=== PATIENT | female | born 1965 | race Caucasian/White ===

== ENCOUNTER 2018-04-03 14:41 | Observation (INO) ==
[2018-04-03] MEDS ORDERED: diphenhydrAMINE HCL 50 MG/ML VIAL IV ONE (14:50)
[2018-04-03] MEDS ORDERED: KETOROLAC TROMETHAMINE 30 MG/ML VIAL IV ONE (14:50)
[2018-04-03] MEDS ORDERED: METOCLOPRAMIDE HCL 5 MG/ML VIAL IV ONE (14:50)
[2018-04-03] MEDS ORDERED: NORMAL SALINE 1,000 ML IV ONE ×3 (14:50→22:19)
[2018-04-03] MEDS ORDERED: MORPHINE SULFATE 4 MG/ML SYRG IV ONE ×2 (14:51→18:37)
[2018-04-03 15:10] LABS: Hematocrit 37.7 % (37.0-47.0); Hemoglobin 13.5 gm/dL (12.5-16.0); Mean Cell Volume 93.5 fl (78-100); Mean Corpuscular Hemoglobin 33.5 pg (27-31); Mean Corpuscular Hgb Conc 35.8 g/dl (32-36); Mean Platelet Volume 9.1 fl (8-12.5); Platelet Count 169 K/mm3 (150-450); Red Blood Count 4.03 M/mm3 (4.2-5.4); White Blood Count 6.5 K/mm3 (4.0-10.5)
[2018-04-03 15:16] LABS: Total Cells Counted 100
[2018-04-03 15:22] LABS: Albumin * 2.9 gm/dl (3.4-5.0); Anion Gap 15.9 mmol/L (6.8-13.8); BUN/Creatinine Ratio 12.9 (9.0-21.6); Bilirubin, Total 0.3 mg/dL (0.0-1.1); Calcium * 8.4 mg/dL (7.9-10.9); Carbon Dioxide 23.7 mmol/L (24-32.6); Potassium 3.6 mmol/L (3.4-4.6); Total Protein 5.7 gm/dL (6.2-8.2)
[2018-04-03 15:33] LABS: Band 10 % (0-2.0); Lymphocyte 12 % (20-51); Monocyte 4 % (0-9); Neutrophil 74 % (42-75); Neutrophil # 4.8 K/mm3 (1.3-6.0); Platelet Estimate Normal (NORMAL)
[2018-04-03 15:34] LABS: RBC Morphology Normal (NORMAL)
[2018-04-03 15:43] LABS: Urine Bilirubin Negative (NEGATIVE); Urine Blood Negative /ul (NEGATIVE); Urine Ketone 5 mg/dL (NEGATIVE); Urine Nitrite Negative (NEGATIVE); Urine Protein 15 mg/dL (NEGATIVE); Urine Specific Gravity 1.025 SP.GR. (1.005-1.010); Urine Urobilinogen Normal (NORMAL); Urine pH 5.5 pH (5.0-7.0)
[2018-04-03 15:54] LABS: Urine Appearance Clear (CLEAR); Urine Bacteria TRACE; Urine Color Yellow; Urine Hyaline Cast TRACE /LPF; Urine RBC None Seen /hpf (0-5); Urine WBC 0-5 /hpf (0-5)
[2018-04-03] MEDS ORDERED: DIATRIZOATE MEGLUMINE, SODIUM 30 ML BTL PO ONE (15:58)
[2018-04-03 16:05] LABS: Cocaine Ur Negative (NEGATIVE); Urine Barbiturate Negative (NEGATIVE); Urine Benzodiazepines Negative (NEGATIVE); Urine Opiates Negative (NEGATIVE); Urine PCP Negative (NEGATIVE)
[2018-04-03 16:06] LABS: Urine THC Positive (NEGATIVE)
[2018-04-03] MEDS ORDERED: cefTRIAXone SODIUM 1,000 MG/100 ML BAG IV ONE (18:37)
--- NOTE | 2018-04-03 19:14 | ERNOTE ---
ER Female HPI Date of Service: 04/03/18 Stated Complaint: stomach pain Time Seen by Provider: 04/03/18 14:48 Source: patient Exam Limitations: no limitations Immunizations: IMMUNIZATION HX Immunizations Up to Date Yes Allergies/Adverse Reactions: Allergies nickel Allergy (Verified 04/03/18 14:46) Home Medications: HOME MEDICATIONS NK 04/03/18 [Last Taken Unknown] - History of Present Illness Narrative: Patient presents via EMS for severe right side abdominal pain into her back since last night. The pain is severe. She has never had it before. nothing makes it better or worse. Severe. Nausea with it. Pain right low and mid abdomen into back. No CP or SOB. Has not seen anyone for it. it waxes and wanes but is mostly severe. She is yelling and thrashing around initially which compromises history. No dysuria. No clear fever but some sweats. Timing: Present: constant Quality: Present: stabbing Onset Location: Present: RLQ Radiation: Present: back Activities at Onset: Present: none Prior Abdominal Problems: Present: none Modifying Factors - (Improves): Present: other - nothign Modifying Factors - (Worsens): Present: other - nothign Associated Symptoms: Present: nausea, abdominal pain. Absent: dysuria Prior Treatment: Absent: recently seen Review of Systems - Review of Systems Constitutional: Present: chills ENT: Present: no symptoms reported Respiratory: Absent: shortness of breath Cardiology: Absent: chest pain Gastrointestinal/Abdominal: Present: See HPI Genitourinary: Present: See HPI Skin: Absent: rash Neurological: Absent: weakness All Other Systems: All systems neg except as marked Medical History (Last Reviewed 04/03/18 @ 19:10 by Jose Uribe MD) Degloving injury of left foot Surgical History: Surgical History (Last Reviewed 04/03/18 @ 19:10 by Jose Uribe MD) left foot surgery Family History: Family History (Last Reviewed 04/03/18 @ 19:10 by Jose Uribe MD) Other No pertinent family history Social History: Preferred Language Irish Do you have any uatsdin or No cultural preference? Psych History Hx of Anxiety,Hx of Depression No Social History Section defined Physical Exam - Physical Exam General Appearance: Present: alert, moderate distress, anxious Head Exam: Present: normal inspection, no evidence of injury Eye Exam: Normal inspection: bilateral, PERRL: bilateral Ears, Nose, Throat: Present: normal ENT inspection Neck: Present: normal inspection Respiratory: Present: no respiratory distress, normal breath sounds, no accessory muscle use, lungs clear Cardiovascular/Chest: Present: normal peripheral pulses, tachycardia Gastrointestinal/Abdominal: Present: normal bowel sounds, nondistended, soft, other - right mid and low abdominal tendenress. Absent: guarding Back Exam: Absent: CVA tenderness (R), CVA tenderness (L) Extremity Exam: Present: normal range of motion Neurological Exam: Present: alert, no motor/sensory deficits Skin Exam: Present: normal color, warm/dry Progress - Results and Orders Patient's Lab Results:: I have reviewed the patient's lab results. - Vital Signs Patient's Vital Signs:: I have reviewed the patient's vital signs. Vital Signs: Vital Signs 04/03/18 14:44 Temperature 36.9 C Pulse Rate 102 H Respiratory Rate 12 Blood Pressure 100/68 O2 Sat by Pulse Oximetry 96 - CT/Ultrasound CT/Ultrasound Narrative: I reviewd the official CT report per radiology. - Progress/Reassessment Chief Complaint: Genitourinary Problem Progress Note-Subjective: 04/03/18 19:12 patient given IV fluids, IV medications including repeat doses of narcotics and IV ABx. She does have clinic Sx C/W kidney stone and 4mm stone on CT. I observed her and attempted to control her pain. This was unsuccessful and she states she is having too much pain to go home. No suggestion of infected kidney stone at this point. D/W Dr Mendoza who will admit obs for pain control. Patient agreeable as she faals she is having too much pain to go home. Departure Clinical Impression: Ureterolithiasis, Kidney stone, Intractable pain - Departure Disposition: Still a patient Condition: Stable
[2018-04-03] MEDS ORDERED: ONDANSETRON HCL/PF 2 MG/ML VIAL IV PRN (22:18)
--- NOTE | 2018-04-03 22:28 | HP ---
Chief Complaint - Chief Complaint Date of Service: 04/03/18 Time of Service: 22:00 Chief Complaint: Flank pain History of Present Illness: Patient presented to the ER today for worsening right-sided flank pain started in the a.m. Patient also endorsed nausea vomiting. CT scan of the abdomen showed her to have a horse shoe shaped kidney with multiple intrarenal stones present causing obstructive uropathy. There is also a 4 mm calcification at the junction of the middle and distal one thirds of the right ureter at the level of the pelvic brim. Other pertinent labs include an acute kidney injury with a fairly normal creatinine but decreased GFR. Patient has no known past Dario history so unsure what her baseline is. IV fluids were started in the ER, will continue them here in the floor. UA was positive for leukocyte esterase and epithelial cells. They were having difficulty controlling her pain so she was brought in for observation for pain control and IV fluid resuscitation for her acute kidney injury. Her urine was sent for culture and she was given a gram of Rocephin for her dirty UA. She also tested positive for amphetamine and marijuana Medical History (Last Reviewed 04/03/18 @ 20:43 by Lottie Raza RN) Degloving injury of left foot Surgical History: Surgical History (Last Reviewed 04/03/18 @ 20:43 by Lottie Raza RN) left foot surgery Family History: Family History (Last Reviewed 04/03/18 @ 20:43 by Lottie Raza RN) Other No pertinent family history Social History: Patient Lives/Resources Home Utilized Occupation Unemployed Preferred Language Danish Do you have any hinduism or No cultural preference? Smoking Status Current every day smoker Have you smoked in the past 12 No months Do you dip or chew tobacco No Psych History Hx of Anxiety,Hx of Depression No Social History Section defined Review Of Systems (GEN) - Review of Systems Generalized/Overall Review: Absent: Weakness, Chills, Fever EENTM: Present: No Symptoms Reported Respiratory: Present: No Symptoms Reported Cardiac: Present: No Symptoms Reported Abdominal: Present: Nausea, Abdominal Pain. Absent: Vomiting Genitourinary: Absent: Burning, Urgency, Frequency, Hematuria Musculoskeletal: Present: Other - Right side pain Neurological: Present: No Symptoms Reported Immunizations: IMMUNIZATION HX Immunizations Up to Date Yes Allergies/Adverse Reactions: Allergies Allergy/AdvReac Type Severity Reaction Status Date / Time nickel Allergy Verified 04/03/18 14:46 Home Medications: HOME MEDICATIONS NK 04/03/18 [Last Taken Unknown] Exam - Exam Vital Signs: Vital Signs - Last Taken Temp 37.0 C 04/03/18 20:34 Pulse 120 H 04/03/18 20:34 Resp 12 04/03/18 20:34 BP 86/56 L 04/03/18 20:34 Pulse Ox 97 04/03/18 20:34 Constitutional: Present: Alert, Oriented x3, Acute distress Back Exam: Present: normal inspection, CVA tenderness (R) Breasts: Present: Exam deferred Respiratory: Present: lungs clear, normal breath sounds Cardiovascular/Chest: Present: normal peripheral pulses, no edema, tachycardia Abdomen: Present: Normal bowel sounds, tender, CVA tenderness - Right. Absent: suprapubic tenderness, distended /Rectal: Present: Exam deferred Skin Exam: Present: other - Track cota on her arms, excoriations on her face Lymphatic: Present: no adenopathy Appearance: Present: disheveled Thoughts: Absent: normal thought pattern - Animated, tactile hallucinations, visual hallucinations Diagnostic Studies: Abnormal Lab Results 04/03/18 04/03/18 04/03/18 Range/Units 15:00 15:00 15:21 RBC 4.03 L (4.2-5.4) M/mm3 MCH 33.5 H (27-31) pg RDW 11.0 L (11.5-14.0) % Band Neuts % (Manual) 10 H (0-2.0) % Lymphocytes % (Manual) 12 L (20-51) % Lymphocytes # (Manual) 0.8 L (1.5-3.5) k/mm3 Sodium 144 H (132-142) mmol/L Plasma Sodium 144 H (130-142) mmol/L Chloride 108 H (97-106) mmol/L Carbon Dioxide 23.7 L (24-32.6) mmol/L Anion Gap 15.9 H (6.8-13.8) mmol/L Est GFR (Non-Af Amer) 49 L D (60-130) mL/min Random Glucose 117 H (70-110) mg/dL ALT 14 L (19-67) U/L Alkaline Phosphatase 49 L (50-170) U/L Total Protein 5.7 L (6.2-8.2) gm/dL Albumin 2.9 L (3.4-5.0) gm/dl Urine Protein 15 H (NEGATIVE) mg/dL Ur Leukocyte Esterase 25 H (NEGATIVE) /ul Ur Epithelial Cells 5-10 H (0-5) /hpf Urine Amphetamine (NEGATIVE) Urine Marijuana (THC) (NEGATIVE) 04/03/18 Range/Units 15:48 RBC (4.2-5.4) M/mm3 MCH (27-31) pg RDW (11.5-14.0) % Band Neuts % (Manual) (0-2.0) % Lymphocytes % (Manual) (20-51) % Lymphocytes # (Manual) (1.5-3.5) k/mm3 Sodium (132-142) mmol/L Plasma Sodium (130-142) mmol/L Chloride (97-106) mmol/L Carbon Dioxide (24-32.6) mmol/L Anion Gap (6.8-13.8) mmol/L Est GFR (Non-Af Amer) (60-130) mL/min Random Glucose (70-110) mg/dL ALT (19-67) U/L Alkaline Phosphatase (50-170) U/L Total Protein (6.2-8.2) gm/dL Albumin (3.4-5.0) gm/dl Urine Protein (NEGATIVE) mg/dL Ur Leukocyte Esterase (NEGATIVE) /ul Ur Epithelial Cells (0-5) /hpf Urine Amphetamine Positive H (NEGATIVE) Urine Marijuana (THC) Positive H (NEGATIVE) Laboratory Results WBC 6.5 K/mm3 (4.0-10.5) 04/03/18 15:00 RBC 4.03 M/mm3 (4.2-5.4) L 04/03/18 15:00 Hgb 13.5 gm/dL (12.5-16.0) 04/03/18 15:00 Hct 37.7 % (37.0-47.0) 04/03/18 15:00 MCV 93.5 fl (78-100) 04/03/18 15:00 MCH 33.5 pg (27-31) H 04/03/18 15:00 MCHC 35.8 g/dl (32-36) 04/03/18 15:00 RDW 11.0 % (11.5-14.0) L 04/03/18 15:00 Plt Count 169 K/mm3 (150-450) 04/03/18 15:00 MPV 9.1 fl (8-12.5) 04/03/18 15:00 Neutrophils % (Manual) 74 % (42-75) 04/03/18 15:00 Band Neuts % (Manual) 10 % (0-2.0) H 04/03/18 15:00 Lymphocytes % (Manual) 12 % (20-51) L 04/03/18 15:00 Monocytes % (Manual) 4 % (0-9) 04/03/18 15:00 Neutrophils # (Manual) 4.8 K/mm3 (1.3-6.0) 04/03/18 15:00 Lymphocytes # (Manual) 0.8 k/mm3 (1.5-3.5) L 04/03/18 15:00 Monocytes # (Manual) 0.3 k/mm3 (0.0-1.0) 04/03/18 15:00 Platelet Estimate Normal (NORMAL) 04/03/18 15:00 RBC Morphology Normal (NORMAL) 04/03/18 15:00 Sodium 144 mmol/L (132-142) H 04/03/18 15:00 Plasma Sodium 144 mmol/L (130-142) H 04/03/18 15:00 Potassium 3.6 mmol/L (3.4-4.6) 04/03/18 15:00 Chloride 108 mmol/L (97-106) H 04/03/18 15:00 Carbon Dioxide 23.7 mmol/L (24-32.6) L 04/03/18 15:00 Anion Gap 15.9 mmol/L (6.8-13.8) H 04/03/18 15:00 BUN 16 mg/dL (3-23) 04/03/18 15:00 Creatinine 1.24 mg/dL (0.4-1.4) 04/03/18 15:00 Est GFR (Non-Af Amer) 49 mL/min (60-130) L D 04/03/18 15:00 BUN/Creatinine Ratio 12.9 (9.0-21.6) 04/03/18 15:00 Random Glucose 117 mg/dL (70-110) H 04/03/18 15:00 Calcium 8.4 mg/dL (7.9-10.9) 04/03/18 15:00 Calcium Adj for Albumin 9.0 mg/dL (8.4-10.2) 04/03/18 15:00 Total Bilirubin 0.3 mg/dL (0.0-1.1) 04/03/18 15:00 AST 18 U/L (0-48) 04/03/18 15:00 ALT 14 U/L (19-67) L 04/03/18 15:00 Alkaline Phosphatase 49 U/L (50-170) L 04/03/18 15:00 Total Protein 5.7 gm/dL (6.2-8.2) L 04/03/18 15:00 Albumin 2.9 gm/dl (3.4-5.0) L 04/03/18 15:00 Lipase 130 U/L (73-393) 04/03/18 15:00 Serum HCG, Qual Negative (NEGATIVE) 04/03/18 15:00 Urine Color Yellow 04/03/18 15:21 Urine Appearance Clear (CLEAR) 04/03/18 15:21 Urine pH 5.5 pH (5.0-7.0) 04/03/18 15:21 Ur Specific [place] 1.025 SP.GR. (1.005-1.010) 04/03/18 15:21 Urine Protein 15 mg/dL (NEGATIVE) H 04/03/18 15:21 Urine Glucose (UA) Negative mg/dL (NEGATIVE) 04/03/18 15:21 Urine Ketones 5 mg/dL (NEGATIVE) 04/03/18 15:21 Urine Blood Negative /ul (NEGATIVE) 04/03/18 15:21 Urine Nitrate Negative (NEGATIVE) 04/03/18 15:21 Urine Bilirubin Negative mg/dl (NEGATIVE) 04/03/18 15:21 Prot Sulfosalicylic Acd Negative mg/dL (0) 04/03/18 15:21 Urine Urobilinogen Normal EU/dl (NORMAL) 04/03/18 15:21 Ur Leukocyte Esterase 25 /ul (NEGATIVE) H 04/03/18 15:21 Urine RBC None seen /hpf (0-5) 04/03/18 15:21 Urine WBC 0-5 /hpf (0-5) 04/03/18 15:21 Ur Epithelial Cells 5-10 /hpf (0-5) H 04/03/18 15:21 Urine Bacteria Trace (NONE) 04/03/18 15:21 Hyaline Casts Trace /LPF (NONE) 04/03/18 15:21 Urine Culture Comments Culture to follow 04/03/18 15:21 Urine Opiates Screen Negative (NEGATIVE) 04/03/18 15:48 Barbiturate Screen Negative (NEGATIVE) 04/03/18 15:48 Ur Phencyclidine Scrn Negative (NEGATIVE) 04/03/18 15:48 Urine Amphetamine Positive (NEGATIVE) H 04/03/18 15:48 U Benzodiazepines Scrn Negative (NEGATIVE) 04/03/18 15:48 Urine Cocaine Screen Negative (NEGATIVE) 04/03/18 15:48 Urine Marijuana (THC) Positive (NEGATIVE) H 04/03/18 15:48 Assessment/Plan - Narrative Narrative: Patient admitted for intractable pain due to ureterolithiasis. Morphine every 4 hours ordered. Likely home tomorrow on oral pain medication. No signs or symptoms of infection, no signs or symptoms of hydronephrosis. Patient has a normal white blood cell count and no infectious markers in her urine. Urine culture ordered. Tachycardia likely due from pain as well as decreased fluid intake due to nausea and pain. Patient denies any substance abuse. Counseled that amphetamine will make her pain worse as her senses. We will monitor overnight and if pain controlled we will transition to [place] and likely send her home tomorrow night. - Assessment/Plan (1) Substance abuse Problem: Acute (2) Ureterolithiasis Problem: Acute (3) Intractable pain Problem: Acute
[2018-04-03] MEDS: MORPHINE SULFATE 4 MG/ML SYRG IV PRN (22:40)
[2018-04-04] MEDS: NORMAL SALINE 1,000 ML IV PRN ×2 (01:42→07:39)
[2018-04-04] MEDS: MORPHINE SULFATE 4 MG/ML SYRG IV PRN ×2 (03:12→07:39)
[2018-04-04] MEDS: HYDROcodone/ACETAMINOPHEN 1 EACH TABLET PO PRN ×3 (12:10→21:29)
--- NOTE | 2018-04-04 20:46 | DS ---
(1) Ureterolithiasis Problem: Acute (2) Intractable pain Problem: Acute (3) Substance abuse Problem: Acute Description of Stay: Patient brought in for intractable pain due to ureterolithiasis. No other signs or symptoms of hydronephrosis or pyelonephritis. 4 mm stone seen at the pelvic brim in her right ureter. Pain well controlled during her stay, She was transitioned to [place] without any issues. Patient was able to tolerate p.o. intake. She was able to urinate without issues. Patient was told that she can follow-up with Dr. Castillo of urology next week if needed but she plans on heading back to [place] where she will follow-up with her PCP there. While here her only abnormal vital sign was tachycardia which is likely due to pain which trended downward during her stay, otherwise she was afebrile and had no issues. She ambulated minimally, states she was scared to move due to the pain that might come back. She was discharged home in stable condition advised to follow- up with her PCP as directed. Procedures Performed: none Results and Findings: Pending Mircobiology Results 04/03/18 15:21 Urine,Clean Catch Urine Culture - Preliminary No Growth Lab Pending Results 04/03/18 15:00: WBC 6.5, RBC 4.03 L, Hgb 13.5, Hct 37.7, MCV 93.5, MCH 33.5 H, MCHC 35.8, RDW 11.0 L, Plt Count 169, MPV 9.1, Neutrophils % (Manual) 74, Band Neuts % (Manual) 10 H, Lymphocytes % (Manual) 12 L, Monocytes % (Manual) 4, Neutrophils # (Manual) 4.8, Lymphocytes # (Manual) 0.8 L, Monocytes # (Manual) 0.3, Platelet Estimate Normal, RBC Morphology Normal 04/03/18 15:00: Sodium 144 H, Plasma Sodium 144 H, Potassium 3.6, Chloride 108 H, Carbon Dioxide 23.7 L, Anion Gap 15.9 H, BUN 16, Creatinine 1.24, Est GFR (Non-Af Amer) 49 L D, BUN/Creatinine Ratio 12.9, Random Glucose 117 H, Calcium 8.4, Calcium Adj for Albumin 9.0, Total Bilirubin 0.3, AST 18, ALT 14 L, Alkaline Phosphatase 49 L, Total Protein 5.7 L, Albumin 2.9 L, Lipase 130 04/03/18 15:00: Serum HCG, Qual Negative 04/03/18 15:21: Urine Color Yellow, Urine Appearance Clear, Urine pH 5.5, Ur Specific [place] 1.025, Urine Protein 15 H, Urine Glucose (UA) Negative, Urine Ketones 5, Urine Blood Negative, Urine Nitrate Negative, Urine Bilirubin Negative, Prot Sulfosalicylic Acd Negative, Urine Urobilinogen Normal, Ur Leukocyte Esterase 25 H, Urine RBC None seen, Urine WBC 0-5, Ur Epithelial Cells 5-10 H, Urine Bacteria Trace, Hyaline Casts Trace, Urine Culture Comments Culture to follow 04/03/18 15:48: Urine Opiates Screen Negative, Barbiturate Screen Negative, Ur Phencyclidine Scrn Negative, Urine Amphetamine Positive H, U Benzodiazepines Scrn Negative, Urine Cocaine Screen Negative, Urine Marijuana (THC) Positive H Discharge Location: Home Disposition: Home self-care Condition: Stable Discharge Activity: Activity as tolerated Discharge Diet: General/regular food Prescriptions (Any new or edited meds): HYDROcodone/ACETAMINOPHEN [[place] 5-325] 1 ea PO Q6H PRN #20 tab PRN Reason: Moderate Pain (Pain Scale 4-6) Complete Home Medications List: Complete Home Medication List: HYDROcodone/ACETAMINOPHEN [[place] 5-325] 1 ea PO Q6H PRN #20 tab 04/04/18
[2018-04-04 21:51] VITALS: BP 115/71
== END 2018-04-04 21:30 | disposition home or self-care (01) ==
LOC: ER 14:41 → MS 14:41
PROVIDERS: ADMIT Family Medicine; ATTEND Family Medicine
CPT/HCPCS: 36415; 74176; 80053; 80307; 81001; 83690; 84703; 85007; 85025; 87077; 87086; 87186; 96365; 96366; 96367; 96375; 99285; G0378